=== PATIENT | male | born 1945 | race Caucasian/White ===

== ENCOUNTER → 2019-03-29 | Outpatient (CLI) | payer MEDICARE ==
[~2019-03-29] MED LIST: CEPH250C37 PO; CIPR-214 PO; CIPR500S3 PO; DOCU-416 PO; FAMO20TA28 PO; GLUC100026 PO; GLUC1TAB13 PO; HYDR-318 PO; HYDR-389 PO; HYDR-653 PO; IBUP800T37 PO; IOPAMIDOL 76% 100 ML INFUS BTL 0 ML ONE; IOPAMIDOL 76% 100 ML INFUS BTL 100 ML ONE; KRIL1CAP12 PO; LORA-629 PO; LORA-788 PO; MULT-976 PO; NS(*) 0.9% 50 ML BAG 50 ML ONE; OMEG500C5 PO; PHEN200T32 PO; SAW450CA3 PO; SIMV-42 PO; TRIA10.8
--- NOTE | 2019-03-29 10:07 | RADIOLOGY IMAGING REPORT ---
[place] [facility] [place]: Romain Syed : 1945 MR: [id number] V: [id number] EXAM DATE: ORDERING PHYSICIAN: ROMAIN BONILLA TECHNOLOGIST: Location: Patient: Romain Syed : 1945 Visit/Account:[id number] Date of Sevice: 03/29/2019 ADDENDUM #1 ADDENDUM: Two calcifications seen at the interface between the dome of the prostate gland and the floor the audra dder may actually represent a bladder calculi the largest measuring 6 mm in diameter. Report Dictated By: Stephanie Coleman MD at 03/29/2019 2:46 PM Report E-Signed By: Stephanie Coleman MD at 03/29/2019 2:[address] ABDOMEN PELVIS W & W/O CONTRAST HISTORY: Hematuria TECHNIQUE: Axial images acquired through the abdomen/pelvis both with and without IV contrast.. Bharti nal and sagittal reformatting also performed.Dose Lowering Technique One of the following dose optimization techniques was utilized in the performance of this exam: Autom ated exposure control; adjustment of the mA and/or kV according to the patient's size; or use of an i terative reconstruction technique. Specific details can be referenced in the facility's radiology C T exam operational policy. CONTRAST: 125 mL Isovue-370 COMPARISON: CT abdomen and pelvis April 21, 2017 and MR the abdomen April 25, 2017 FINDINGS: Visualized lung bases: There is scarring in the lung bases. Hepatobiliary: Negative. Spleen: Negative. Adrenals: Negative. Pancreas: Negative. Kidneys ureters and bladder: Bilateral renal cysts again seen. There is cortical scarring upper pole of the left kidney. There is a 1 mm nonobstructing calculus in the upper pole the right kidney. Th ere are at least two nonobstructing calculi upper pole calyx of the left kidney the largest measuring 5 mm in diameter There is no evidence of hydronephrosis or hydroureter. . Irregular thickening of the posterior bladder wall again seen Genitalia: Prostate gland is markedly enlarged, heterogeneous and impinges upon the floor the bladde r GI: There is diverticulosis of the left-sided colon although no CT evidence of acute diverticulitis. The appendix is visualized does not appear inflamed. There is a small hiatal hernia Vessels/spaces/nodes: There is moderate ectasia of the abdominal aorta with mild to moderate atheros clerotic calcifications Bones/soft tissues: There is a small umbilical hernia containing fat and a small ventral hernia just above the umbilicus in the midline also containing fat . There are spondylotic changes lumbar spin e Additional findings: None pertinent. IMPRESSION: Nonobstructing calculi in the renal collecting systems bilaterally Cortical scarring upper pole the left kidney Irregular thickening of the posterior bladder wall Prostate gland is markedly enlarged, heterogeneous and impinges upon the floor the bladder Small umbilical hernia containing fat Small ventral hernia just above the umbilicus in the midline containing fat Additional chronic findings as described Report Dictated By: Stephanie Coleman MD at 03/29/2019 9:08 AM Report E-Signed By: Stephanie Coleman MD at 03/29/2019 10:04 AM WSN:[email or web address]
== END ==
LOC: CT 01:35
DX: N40.1 Benign prostatic hyperplasia with lower urinary tract symptoms (principal); N20.0 Calculus of kidney; K46.9 Unspecified abdominal hernia without obstruction or gangrene; K43.7 Other and unspecified ventral hernia with gangrene
CPT/HCPCS: 74178; J7050; Q9967

== ENCOUNTER 2019-04-05 00:33 | Observation (INO) | payer MEDICARE ==
[2019-04-05] VITALS (10 sets, daily range): BP systolic 118–181; BP diastolic 71–121
[~2019-04-05] VITALS: Ht 188 cm; Wt 97.1 kg
[~2019-04-05 00:33] MED LIST changes: -IOPAMIDOL 76% 100 ML INFUS BTL 0 ML ONE; -IOPAMIDOL 76% 100 ML INFUS BTL 100 ML ONE; +KRIL500C2 PO; -NS(*) 0.9% 50 ML BAG 50 ML ONE
[2019-04-05] MEDS ORDERED: FAMOTIDINE 20 MG TAB ONE (12:05)
[2019-04-05] MEDS ORDERED: fentaNYL CITR 100 MCG/2 ML AMP ONE ×3 (12:06→16:11)
[2019-04-05] MEDS ORDERED: ONDANSETRON 4 MG/2 ML VIAL ONE (12:07)
[2019-04-05] MEDS ORDERED: DEXAMETHASONE SOD 4 MG/ML VIAL ONE (12:07)
[2019-04-05] MEDS ORDERED: PROPOFOL EMUL(*) 10MG/ML 20 ML 20 ML ONE (12:07)
[2019-04-05] MEDS ORDERED: LIDOCAINE MPF 1% 5 ML VIAL ONE (12:07)
[2019-04-05] MEDS ORDERED: KETAMINE HCL 200 MG/20 ML MDV ONE (12:19)
[2019-04-05 12:34] LABS: PLATELET COUNT, AUTOMATED 245 K/uL (150-450)
[2019-04-05] MEDS ORDERED: NORMOSOL R SOLN(*) 1000 ML BAG 1,000 ML IV PRN (12:35)
[2019-04-05] MEDS ORDERED: MIDAZOLAM 2 MG/2 ML VIAL IVP PRN (12:35)
[2019-04-05] MEDS ORDERED: LIDOCAINE/SOD BICARB 8.4% SYR ID ONE (12:35)
[2019-04-05] MEDS ORDERED: cefTRIAXone(*) 2 GM VIAL 2 GM in NS(*) 0.9% 100 ML MINI-BAG 100 ML IVPB ONE (12:35)
[2019-04-05] MEDS ORDERED: GENTAMICIN(*) 80 MG/2 ML VIAL 160 MG in NS(*) 0.9% 100 ML BAG 100 ML IVPB ONE (12:35)
[2019-04-05] MEDS ORDERED: FAMOTIDINE 20 MG TAB PO ONE (12:35)
[2019-04-05 12:42] LABS: INR 0.99
[2019-04-05] MEDS ORDERED: IOPAMIDOL-200 50 ML VIAL IS ONE (12:47)
[2019-04-05] MEDS ORDERED: HYDROCORTISONE 1% CR 28.35 GM TP ONE (12:47)
[2019-04-05] MEDS ORDERED: ePHEDrine 25 MG/5 ML DISP.SYR IVP ONE (13:26)
--- NOTE | 2019-04-05 13:39 | RADIOLOGY IMAGING REPORT ---
[place]AC[place] [facility] [place] NAME: Romain Syed : 1945 MR: [id number] V: [id number] EXAM DATE: ORDERING PHYSICIAN: ROMAIN BONILLA TECHNOLOGIST: Location: [facility] - [place] Patient: Romain Syed : 1945 Visit/Account:[id number] Date of Sevice: 04/05/2019 EXAMINATION: KUB 04/05/2019 12:35 PM HISTORY: PRE-OP. Kidney stones. Blood in urine. COMPARISON: Renal stone CT 03/29/2019 FINDINGS: Nonobstructive intrarenal nephrolithiasis shown by the CT is not well-defined by this krista ge. Multiple pelvic calcifications are phleboliths by the CT. Bowel gas pattern is unremarkable. D egenerative changes are present in the spine and hips. IMPRESSION: Known nephrolithiasis is not well-defined by KUB. Report Dictated By: Ludwin Xavier MD at 04/05/2019 1:31 PM Report E-Signed By: Ludwin Xavier MD at 04/05/2019 1:33 PM WSN:[email or web address]
[2019-04-05] MEDS ORDERED: WATER FOR IRRIG,STERILE 3000ML IR ONE (14:35)
--- NOTE | 2019-04-05 15:54 | RADIOLOGY IMAGING REPORT ---
[place] [facility] [place]: Romain Syed : 1945 MR: [id number] V: [id number] EXAM DATE: ORDERING PHYSICIAN: ROMAIN BONILLA TECHNOLOGIST: [place] [facility] [place]: Romain Syed : 1945 Visit/Account:[id number] Date of Sevice: 04/05/2019 Exam type: C-ARM FLUORO 1 HR History: CYSTOSCOPY, STENT REMOVAL AND PLACEMENT Comparison: CT March 29, 2019. Findings: Four intraoperative some spot views over the abdomen and pelvis were submitted demonstrating a guidew alayna projecting over the expected course of the left ureter. On the final image the catheter is seen coursing along the expected location of the left ureter to the level of L3-4. No fluoroscopy informa tion was submitted IMPRESSION: 1. As above Report Dictated By: Stephanie Coleman MD at 04/05/2019 3:47 PM Report E-Signed By: Stephanie Coleman MD at 04/05/2019 3:50 PM WSN:[email or web address]
[2019-04-05] MEDS ORDERED: LABETALOL HCL 25 MG/5 ML SYRINGE ONE (16:11)
[2019-04-05] MEDS ORDERED: BELLADONNA ALK/OPIUM 60MG SUPP PR ONE (16:24)
[2019-04-05] MEDS ORDERED: GLYCOPYRROLATE 0.2MG/ML 1 ML INJ ONE (16:24)
[2019-04-05] MEDS ORDERED: BELLADONNA ALKALOIDS/OPIUM 30 MG SUPP PR PRN (16:35)
[2019-04-05] MEDS ORDERED: NALOXONE HCL 0.4 MG/ML VIAL IVP PRN (16:35)
[2019-04-05] MEDS ORDERED: LR(*) 1000 ML BAG 1,000 ML IV PRN (16:35)
[2019-04-05] MEDS ORDERED: PROPANTHELINE BROMIDE 15MG TAB PO PRN (16:35)
[2019-04-05] MEDS ORDERED: GLYCOPYRROLATE 0.2MG/ML 1 ML INJ IVP PRN (16:35)
[2019-04-05] MEDS ORDERED: FLUSH 10 ML SYR IVP PRN (16:35)
[2019-04-05] MEDS ORDERED: ACETAMIN/CODEINE #3 300-30 MG PO PRN (16:35)
[2019-04-05] MEDS ORDERED: PCA LOCKBOX KEYS XX PRN (16:35)
[2019-04-05] MEDS ORDERED: ZOLPIDEM TARTRATE 5 MG TAB PO PRN (16:35)
[2019-04-05] MEDS ORDERED: ONDANSETRON 4 MG/2 ML VIAL IVP PRN (16:35)
[2019-04-05] MEDS ORDERED: HYDROMORPHON PCA10MG/50ML(CII) 10 MG/50 ML PLAST..BAG IV PRN (16:35)
[2019-04-05] MEDS ORDERED: NORMOSOL R SOLN(*) 1000 ML BAG 1,000 ML IV ONE (16:38)
--- NOTE | 2019-04-05 17:30 | OPERATIVE REPORT 1 ---
EVENT DATE: April 05, 2019 SURGEON: Romain Gandhi MD ANESTHESIOLOGIST: Ralph Blackwell MD ANESTHESIA: General anesthetic. PREOPERATIVE DIAGNOSES 1. Vesicolithiasis. 2. Bilateral renal lithiasis. POSTOPERATIVE DIAGNOSES 1. Vesicolithiasis. 2. Bilateral renal lithiasis. PROCEDURES PERFORMED 1. Cystourethroscopy. 2. Manual crushing of five approximately 1 cm bladder stones. 3. Vesicolitholapaxy of multiple bladder calculi. 4. Left external stent placement. 5. Left extracorporeal shock wave lithotripsy of two tones in the left kidney. 6. Removal of left external ureteral stent. 7. Replacement of left internal indwelling stent 6-Taiwanese x 28 cm Percuflex Plus. DESCRIPTION OF PROCEDURE Under general anesthetic, the patient was prepped and draped in the standard lithotomy position. The 21 panendoscope was admitted through the urethra into the bladder. The urethra was normal. The prostate was long and deep. Verumontanum was normal. There was an inflammatory polyp of the prostatic urethra. Bladder showed 4+ trabeculation. I could see the left ureteral orifice, but was unable to clearly visualize his right ureteral orifice. Five bladder stones were encountered and were manually crushed and extracted. Vesicolitholapaxy of multiple bladder calculi. Multiple visualizations of the bladder showed the vesicolithiasis to be eradicated. The access catheter was placed up the left collecting system and guidewire. The catheter was secured to the urethral Crews 16-Taiwanese coude tip. Contrast was attached. The patient was subsequently transferred to the stone treatment unit. After localization of the left kidney, no stone could be visualized in the left kidney. CT IVP showed the large calculus and two smaller calculi to be in the upper posterior calyx of the left kidney. After careful scrutiny with fluoroscopy, the calculus in the left kidney could not be visualized. Contrast was utilized to outline the anatomy of the kidney. The upper pole jeison stone, which was large, was treated with a total of 3000 shocks, progressing from low to high kV fairly slowly. The external stent was removed at the conclusion of the procedure. A guidewire was passed up the left collecting system. Then, the 6-Taiwanese x 28 cm Percuflex Plus was passed up the left collecting system. An x-ray confirmed satisfactory positioning with a full curl in the kidney and a full curl in the bladder. The bladder was drained. The bloody urine was cleared. The scope was removed. Patient tolerated the procedure satisfactorily and returned to the recovery room in satisfactory condition. This is a 73-year-old white male complaining of gross hematuria while wintering in [place] this past winter and spring. Patient returns in followup and was found to have bilateral renal calculi, a very small one in the right kidney and a fairly large one in the left kidney with multiple peripheral stones. He has multiple bladder calculi. Preoperatively, the problems were discussed with the patient. He was agreeable to further evaluation and therapy. That has been accomplished. See operative note for details. Patient will be ready for discharge home in the a.m. if all is going well. He is to force fluids, 12 glasses of water per day. Activities are as tolerated. He is to strain all his urine. He was sent home with strainers. A copy of instructions was given to the patient. He is to percuss his left kidney frequently to facilitate passage of stone particles. Patient will be discharged home on Cipro, Pepcid, Motrin, Pyridium, and [place] therapy. He is to continue his usual medications. He was given my cell phone number to contact me if there are any problems. If he is not able to reach me, he is to go to the Emergency Room for evaluation and treatment. GISELE
[2019-04-05] MEDS ORDERED: BELLADONNA ALK/OPIUM 60MG SUPP PR PRN (19:35)
[2019-04-05] MEDS: BENZALKONIUM CL 1:750 TOP SOLN TP SCH (21:00)
[2019-04-05] MEDS: NEOMYCIN/POLYMYX/BACITR OINT 1 PACKET TP SCH (21:01)
[2019-04-05] MEDS: DOCUSATE SODIUM 100 MG CAP PO SCH (21:01)
[2019-04-05] MEDS: FAMOTIDINE 20 MG TAB PO SCH (21:01)
[2019-04-06] MEDS ORDERED: GENTAMICIN/NS 80 MG/100 ML PB 100 ML IVPB SCH (01:30)
[2019-04-06 03:16] VITALS: BP 117/79
[2019-04-06 06:56] VITALS: BP 154/96
[2019-04-06] MEDS ORDERED: BETHANECHOL CHL 25 MG TAB PO ONE (07:05)
[2019-04-06] MEDS: NEOMYCIN/POLYMYX/BACITR OINT 1 PACKET TP SCH (07:43)
[2019-04-06] MEDS: BENZALKONIUM CL 1:750 TOP SOLN TP SCH (07:44)
[2019-04-06] MEDS: FAMOTIDINE 20 MG TAB PO SCH (08:26)
[2019-04-06] MEDS: DOCUSATE SODIUM 100 MG CAP PO SCH (08:27)
[2019-04-06] MEDS ORDERED: TAMSULOSIN HCL 0.4 MG CAP PO SCH (09:00)
[2019-04-06] MEDS ORDERED: FAMO20TA28 PO (11:28)
[2019-04-06] MEDS ORDERED: PHEN200T32 PO (11:28)
[2019-04-06] MEDS ORDERED: IBUP800T37 PO (11:29)
[2019-04-06] MEDS ORDERED: ACET-3017 PO (11:30)
[2019-04-06] MEDS ORDERED: CIPR-344 PO (11:31)
[2019-04-06 11:39] VITALS: BP 156/93
--- NOTE | 2019-04-06 12:07 | Antimicrobial Stewardship ---
Antimicrobial Time Out Antimicrobial Stewardship MD Service: Other (SURGERY) Indications: Other (NEPHRO) Antimicrobial Used ROCEPHIN 1G QDAY AND GENT 80MG Q12H Start Date: Apr 05, 2019 Culture Results: N/A (POST OP) Eligible for PO Conversion Eligable for PO Conversion: No Reviewed with Provider Reviewed w/ Provider on Rounds: No Comments Comments POST OP ABX TANESHA BERNAL Apr 06, 2019 12:07
[2019-04-06] MEDS ORDERED: cefTRIAXone 1 GM VIAL IVP SCH (13:00)
[2019-04-06] MEDS ORDERED: TAMS0.4C25 PO (13:02)
--- NOTE | 2019-04-06 13:30 | NUR ---
Patient room air sat of 85%. Refuses home O2. Education provided.
== END 2019-04-06 12:58 | disposition home or self-care (01) ==
LOC: OR 00:33 → MED 17:30
DX: N21.0 Calculus in bladder (principal); N20.0 Calculus of kidney; I10 Essential (primary) hypertension
CPT/HCPCS: 50590; 52234; 52317; 52332; 74018; 76000; 81001; 82365; 85025; 85610; 87088; 88300; A9270; C1758; C1894; C2617; G0378; J0696; J1100; J1580; J2001; J2405; J2704; J3010; J3490; J7050; Q9966

== ENCOUNTER → 2019-04-13 | Outpatient (CLI) | payer MEDICARE ==
[~2019-04-13] MED LIST changes: +ACET-3017 PO; +AMOX500T10 PO; +CIPR-344 PO; +TAMS0.4C25 PO
== END ==
LOC: RAD 11:37
DX: N20.0 Calculus of kidney (principal)

== ENCOUNTER → 2019-04-16 | Outpatient (CLI) | payer MEDICARE ==
--- NOTE | 2019-04-16 16:44 | RADIOLOGY IMAGING REPORT ---
FACILITY: [facility] PATIENT NAME: Analilia Syed : 1945 MR: [id number] V: [id number] EXAM DATE: [id number] ORDERING PHYSICIAN: ANALILIA BONILLA TECHNOLOGIST: Location: [facility] - [place] Patient: Analilia Syed : 1945 Visit/Account:[id number] Date of Sevice: 04/16/2019 EXAMINATION: CT Abdomen and Pelvis Without Contrast 04/16/2019 3:30 PM HISTORY: Nephrolithiasis. Stent placement. TECHNIQUE: Renal stone protocol - Spiral scan was obtained through the kidneys, ureters and bladder without intravenous contrast. One of the following dose optimization techniques was utilized in the performance of this exam: Autom ated exposure control; adjustment of the mA and/or kV according to the patient's size; or use of an i terative reconstruction technique. Specific details can be referenced in the facility's radiology C T exam operational policy. COMPARISON STUDIES: 03/29/2019.. FINDINGS: Right kidney and ureter: Punctate nonobstructive upper pole stone. Low-density partially exophytic m edial lower pole cyst. No ureteral stone or dilatation. Left kidney and ureter: The largest upper pole stone on the comparison is no longer visible. Small s tones or nephrocalcinosis persist in the lower pole. Ureteral stent in place. No stone or stone fra gment visible along the ureter. There is a small calcification along the back of the ureter (series 3 image 379) which is unchanged from previous and appears to be in adjacent vascular calcification ra ther than a ureteral stone or stone fragment. Bladder: Distal stent tip is coiled in the bladder. No bladder stone. Bladder has irregular directl y margins and the floor is elevated by the prostate. Liver / biliary: negative Pancreas: negative Spleen: Incidental inferior accessory splenule. Adrenal glands: negative Retroperitoneum: negative Pelvic structures: Prostate 7.4 x 5.7 x 6.3 cm Bowel / peritoneum / mesenteries: Extensive diverticulosis of the colon. Small hiatal hernia. Vessels: Atherosclerosis with aortoiliac ectasia. Musculoskeletal / Body wall: Degenerative changes in the spine and hips. Small fatty umbilical herni a. Lymph node assessment: negative Lower chest: Atelectasis or scarring in the lung bases with mild bronchitic thickening. IMPRESSION: 1. Interval placement of a left ureteral stent. Largest left upper pole stone shown previously is n ot redemonstrated and additional smaller mid pole stone is also no longer well-defined. No stone or stone fragment evident along the ureter. 2. Punctate nonobstructive upper pole stone in the right kidney. 3. Enlarged prostate with an irregular bladder wall. Report Dictated By: Ludwin Xavier MD at 04/16/2019 4:20 PM Report E-Signed By: Ludwin Xavier MD at 04/16/2019 4:39 PM WSN:[email or web address]
== END ==
LOC: CT 15:21
DX: N20.0 Calculus of kidney (principal); N40.0 Benign prostatic hyperplasia without lower urinary tract symptoms
CPT/HCPCS: 74176

== ENCOUNTER → 2019-04-18 | Outpatient (CLI) | payer MEDICARE | LOC: AUD 09:00 | PROVIDERS: ATTEND Nurse Practitioner Psychiatric/Mental Health | DX: H91.93 Unspecified hearing loss, bilateral (principal) | CPT/HCPCS: 92552 ==

== ENCOUNTER 2019-04-19 00:20 | Day surgery (SDC) | payer MEDICARE ==
[2019-04-19] VITALS (7 sets, daily range): BP systolic 142–157; BP diastolic 84–105
[~2019-04-19] VITALS: Ht 182.9 cm; Wt 97.5 kg
[2019-04-19] MEDS ORDERED: FAMOTIDINE 20 MG TAB PO ONE (06:45)
[2019-04-19] MEDS ORDERED: cefTRIAXone(*) 2 GM VIAL 2 GM in NS(*) 0.9% 100 ML MINI-BAG 100 ML IVPB ONE (06:45)
[2019-04-19] MEDS ORDERED: NORMOSOL R SOLN(*) 1000 ML BAG 1,000 ML IV PRN (06:45)
[2019-04-19] MEDS ORDERED: MIDAZOLAM 2 MG/2 ML VIAL IVP PRN (06:45)
[2019-04-19] MEDS ORDERED: LIDOCAINE/SOD BICARB 8.4% SYR ID ONE (06:45)
[2019-04-19] MEDS ORDERED: DEXAMETHASONE SOD 4 MG/ML VIAL ONE (07:02)
[2019-04-19] MEDS ORDERED: ONDANSETRON 4 MG/2 ML VIAL ONE (07:02)
[2019-04-19] MEDS ORDERED: LIDOCAINE MPF 1% 5 ML VIAL ONE (07:02)
[2019-04-19] MEDS ORDERED: PROPOFOL EMUL(*) 10MG/ML 20 ML 20 ML ONE (07:02)
[2019-04-19] MEDS ORDERED: fentaNYL CITR 100 MCG/2 ML AMP ONE (07:03)
[2019-04-19] MEDS ORDERED: INDIGOTINDISULF SOD 40 MG/5 ML ONE (08:07)
[2019-04-19] MEDS ORDERED: IOPAMIDOL-200 50 ML VIAL IS ONE (08:10)
[2019-04-19] MEDS ORDERED: IOPAMIDOL 20 ML VIAL IT ONE (08:27)
[2019-04-19] MEDS ORDERED: [UNRECOGNIZED DRUG - OTHER] IVPB ONE (08:27)
[2019-04-19] MEDS ORDERED: IOPAMIDOL 61% 100 ML INFUS BTL 100 ML ONE (08:31)
[2019-04-19] MEDS ORDERED: NS 0.9% 3000 ML IRRIGATION BAG IR ONE (09:10)
[2019-04-19] MEDS ORDERED: WATER FOR IRRIG,STERILE 3000ML IR ONE (09:10)
[2019-04-19] MEDS ORDERED: WATER STERILE FOR IRRIG 1000ML IR ONE (09:11)
[2019-04-19] MEDS ORDERED: GENTAMICIN(*) 80 MG/2 ML VIAL 160 MG in NS(*) 0.9% 100 ML BAG 100 ML IVPB ONE (10:30)
[2019-04-19] MEDS ORDERED: CIPR-344 PO (11:18)
[2019-04-19] MEDS ORDERED: IBUP800T37 PO (11:19)
[2019-04-19] MEDS ORDERED: FAMO20TA28 PO (11:20)
[2019-04-19] MEDS ORDERED: ACET-3017 PO (11:20)
--- NOTE | 2019-06-15 12:07 | OPERATIVE REPORT 1 ---
EVENT DATE: April 19, 2019 SURGEON: Romain Gandhi MD ANESTHESIOLOGIST: Lorenzo Davison MD ANESTHESIA: General. PREOPERATIVE DIAGNOSIS Bilateral renal lithiasis. POSTOPERATIVE DIAGNOSIS Bilateral renal lithiasis. PROCEDURES PERFORMED 1. Cystourethroscopy. 2. Left ureteral stent removal. 3. Left external stent placement. 4. Left extracorporeal shock wave lithotripsy. 5. Right extracorporeal shock wave lithotripsy. DESCRIPTION OF PROCEDURE Under general anesthetic, the patient was prepped and draped in the extended lithotomy position. The 21-Panendoscope was admitted through the urethra and into the bladder. The left ureteral stent was removed. The left external stent catheter was placed, six vessel tip. The external stent was secured to the urethral Crews and contrast medium and draining system. The patient was transferred to the stone treatment unit. The stone in the inferior pole area of the left kidney was treated with a total of 2,000 shocks, progressing from low to high kV fairly slowly. The stones appeared to satisfactorily disintegrate. Utilizing IV contrast, the stone in the inferior pole area of the right kidney was treated with a total of 2,000 shocks, progressing from low to high kV fairly slowly. The external stent and Crews were removed at conclusion of the procedure. The patient tolerated the procedure satisfactorily and returned to the recovery room in satisfactory condition. This is a 77-year old white male complaining of bilateral renal lithiasis. Patient is status postop left ESWL approximately two weeks ago. He is in for followup for repeat treatment of the left residual lithiasis and treatment of his right renal stone. This has been accomplished. See operative note for details. Patient will be ready for discharge home when alert and functional. Patient is to force fluids, 12 glasses of water per day. Patient is to percuss both kidneys frequently to facilitate passage of stone particles. Patient was given a copy of instructions for renal percussion. Patient is to follow up in the office on May 01, 2019. [facility]ITALJay
--- NOTE | 2019-06-21 17:21 | OPERATIVE REPORT 1 ---
EVENT DATE: April 19, 2019 SURGEON: Romain Gandhi MD ANESTHESIOLOGIST: Lorenzo Davison MD ANESTHESIA: General. PREOPERATIVE DIAGNOSES 1. Bilateral renal lithiasis. 2. Left ureteral stent. POSTOPERATIVE DIAGNOSES 1. Bilateral renal lithiasis. 2. Left ureteral stent. PROCEDURES PERFORMED 1. Cystourethroscopy. 2. Left ureteral stent removal. 3. Left external stent placement. 4. Left extracorporeal shock wave lithotripsy. 5. Right extracorporeal shock wave lithotripsy. DESCRIPTION OF PROCEDURE Under general anesthetic, the patient was prepped and draped in a standard lithotomy position. The 21 panendoscope admitted through the urethra into the bladder. No stones were visible in the bladder. The internal stent was removed. Again, no stones were visible in the bladder. A 6 whistle-tipped ureteral external catheter was placed. The catheter was secured to a Crews with contrast media and the drainage system. The patient was transferred to the stone treatment unit. After localization, the stone fragments in the inferior pole of the left kidney were treated with a total of 3000 shocks, progressing from low to high kV fairly slowly. Utilizing IV contrast, the anatomy of the right kidney was visualized, and the stone in the upper pole area of the right kidney was treated again with a total of 2000 shocks, progressing from low to high kV fairly slowly. The external stent and Crews were removed at the conclusion of the treatment. Patient tolerated the procedure satisfactorily and returned to the recovery room in stable condition. This is a 73-year-old white male complaining of bilateral renal lithiases. Options were discussed with the patient pretreatment. He agreed to repeat treatment on the left and primary treatment of the stone in the right kidney. That has been accomplished. See operative note for details. Patient will be ready for discharge home when alert and functional. He is to follow up with _6____ in April 2019. He is to call for an appointment. He is discharged on Cipro, Motrin, and Tylenol No. 3 therapy. He is to strain all his urine. He is sent home with strainers. He is informed to percuss both kidneys frequently to facilitate passage of stone particles. A copy of instructions for renal precautions was given to the patient. Patient was given my cell phone number to contact me if he is having any problems. If unable to contact me, he is to go to the Emergency Room for evaluation and therapy. GISELE
== END 2019-04-19 12:30 | disposition home or self-care (01) ==
LOC: OR 00:20
DX: N20.0 Calculus of kidney (principal)
CPT/HCPCS: 50590; A9270; C1758; C1769; C1894; J0696; J1100; J1580; J2001; J2405; J2704; J3010; J7050; Q9966; Q9967; Q9958